=== PATIENT | female | born 1970 | race Caucasian/White ===

== ENCOUNTER 2016-08-01 13:30 | Emergency (ER) | payer BC ==
[2016-08-01] MEDS ORDERED: AZITHROMYCIN 250 MG TABLET ONE (13:53)
== END 2016-08-01 14:00 | disposition home or self-care (01) ==
LOC: ED 13:30
DX: J44.0 Chronic obstructive pulmonary disease with (acute) lower respiratory infection (principal); J20.9 Acute bronchitis, unspecified; J45.909 Unspecified asthma, uncomplicated
CPT/HCPCS: 99282; 99283; A9270

== ENCOUNTER 2016-10-10 10:38 | Emergency (ER) | payer BC | END 2016-10-10 11:19 | disposition home or self-care (01) | LOC: ED 10:38 | DX: J11.1 Influenza due to unidentified influenza virus with other respiratory manifestations (principal); J45.909 Unspecified asthma, uncomplicated ==